=== PATIENT | male | born 1965 | race Caucasian/White ===

== ENCOUNTER 2017-06-28 11:29 | Emergency (ER) | payer OTHER ==
[~2017-06-28] VITALS: Ht 162.6 cm; Wt 90.0 kg
[~2017-06-28 11:29] MED LIST: Z.0.NO CURRENT MEDS
[2017-06-28 11:48] VITALS: BP 129/84; PULSE 78; RESP 20; TEMP 98.1; O2SAT 96
[2017-06-28] MEDS ORDERED: ORPHENADRINE INJ 60 MG/2 ML AMP IM ONE (12:00)
[2017-06-28] MEDS ORDERED: KETOROLAC TROMETHAMINE 60 MG/2 ML (IM) VIAL IM ONE (12:00)
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
[2017-06-28] MEDS ORDERED: IBUP1TAB7 PO (13:17)
[2017-06-28] MEDS ORDERED: CYCL10TA PO (13:17)
== END 2017-06-28 13:47 | disposition home or self-care (01) ==
LOC: NEPD 11:29
DX: S39.012A Strain of muscle, fascia and tendon of lower back, initial encounter (principal); V85.0XXA Driver of special construction vehicle injured in traffic accident, initial encounter; Y99.0 Civilian activity done for income or pay
CPT/HCPCS: 72131; 96372; 99284; J1885; J2360